=== PATIENT | male | born 1955 | race Caucasian/White ===

== ENCOUNTER 2017-06-14 04:00 | Inpatient (IN) | payer SELFPAY ==
[~2017-06-14] VITALS: Ht 167.6 cm; Wt 70.3 kg
[~2017-06-14 04:00] MED LIST: ACETAMINOPHEN325 M1 PO; AMLODIPINE BESY10 MG PO; ASPIRIN EC81 MG PO; AUGMENTIN 875-1 EACH PO; BISACODYL10 MG PR; CARVEDILOL12.5 MG PO; GABAPENTIN300 MG PO; HUMALOG100 UNIT/1 SUB-Q; HUMALOG100 UNITS/ IV; HUMULIN N100 UNIT/1 SUB-Q; IBUPROFEN800 MG PO; LASIX20 MG PO; LIPITOR80 MG PO; LISINOPRIL10 MG PO; LOVENOX40 MG SUB-Q; METFORMIN HCL1000 MG PO; METOPROLOL TART50 MG PO; NOVOLIN N100 UNIT/1 SUB-Q; OXYCODONE HCL5 MG PO; PLAVIX75 MG PO; POLYETHYLENE GL17 GM PO; PROTONIX40 MG PO; TAMSULOSIN HCL0.4 MG PO; ZOFRAN ODT4 MG SL
--- NOTE | 2017-06-14 07:07 | NUR ---
0615 PATIENT ARRIVES FROM ER. PATENT ALERT, ORIENTED, SWEATY AND SOB. PATIENT TRANSFERRED INTO BED. PT ON 2L NC. O2 SATS 88%. THIS RN INCREASES O2 TO 4L NC. PATIENT ORIENTED TO ROOM, BED CONTROLS AND CALL LIGHT. PATIENT DENIES PAIN. SATS REMAIN 88% PATIENT REFUSES CPAP. 0640 DR LOPEZ UPDATED. PATIENT UNABLE TO VOID, DECREASED SATS, ELELVATED BLOOD GLUCOSE. PATIENT GIVEN SS INSULIN EARLY. 9 UNITS NOVOLOG GIVEN. 0700 BLADDER SCAN SHOWS >999 PATIENT UP TO BATHROOM, REFUSES TO USE BSC OR URINAL. PATIENT TELLS RN "I HATE BEING IN THE HOSPITAL. QUIT HOVERING OVER ME" O2 AT 6L VIA OXYMASK, SATS NOW 95%. 0710 PATIENT REMAINS VERY INDEPENDANT, DOES NOT WANT NURSING ASSISTANCE. PATIENT IN BATHROOM TRYING TO VOID
--- NOTE | 2017-06-14 07:29 | NUR ---
MD notified of urine output. Will closely monitor. No summers ordered as patient will refuse. Report given to day shift.
--- NOTE | 2017-06-14 07:34 | NUR ---
PT AWAKE AND SITTING AT THE SIDE OF THE BED, PT STATES "I FEEL SO MUCH BETTER THAN I DID WHEN I CAME IN". PT NOT SOB, DENIES PAIN AND NAUSEA. PT GAVE HIS BREAKFAST ORDER. PT COOPERATIVE AT THIS TIME. PT O2 SATS ARE 98-100% ON 2L VIA OXY MASK.
--- NOTE | 2017-06-14 08:36 | NUR ---
PT HAD RUN OF 11 BEATS V-APOLINAR, CALLED DR. LOPEZ TO UP DATE. ORDER GIVEN TO GIVE PO METOPROLOL NOW.
--- NOTE | 2017-06-14 09:05 | NUR ---
IV SITES INTACT, NO REDNESS OR SWELLING NOTED, BOTH SITES FLUSH EASILY. PT ALERT AND ORIENTED X4, COOPERATIVE AT THIS TIME. PT REQUESTS TO SLEEP.
--- NOTE | 2017-06-14 10:18 | NUR ---
PT UP OUT OF BED AMBULATED TO TOILET INDEPENDENTLY. PT COOPERATIVE AND ALERT X4. PT HR STAYING 70'S SINUS RYTHM.
--- NOTE | 2017-06-14 10:24 | NUR ---
PT UP AMBULATED TO TOILET, ABLE TO HAVE A BM AND VOID 325 ML CLEAR YELLOW URINE. PT AMBULATED BACK TO BED, O2 SAT IS 99% ON ROOM AIR. WILL LEAVE PT ON ROOM AIR AT THIS TIME, CONTINUE TO MONITOR.
--- NOTE | 2017-06-14 11:27 | NUR ---
PT RESTING QUIETLY AT THIS TIME, SO IS AT THE BEDSIDE.
--- NOTE | 2017-06-14 11:55 | NUR ---
IV SITES INTACT, NO REDNESS OR SWELLING NOTED, PT DENIES PAIN AT IS SITES WITH FLUSH. PT ALERT AND ORIENTED, COOPERATIVE. PT ZARA 3 UNITS OF INSULIN FOR BLOOD SUGAR OF 195.
--- NOTE | 2017-06-14 15:09 | NUR ---
PT C/O SOME NAUSEA, 4 MG IV ZOFRAN GIVEN. PT C/O GENERALIZED DISCOMFORT, 500 MG TYLENOL GIVEN. PT MOSTLY SLEEPING THIS SHIFT. PT STATES "I JUST FEEL CRUMMY".
--- NOTE | 2017-06-14 17:15 | NUR ---
PT UP AMBULATED TO THE TOILET INDEPENDENTLY. PT ABLE TO VOID 500 ML SMITH URINE. PT THEN BACK TO BED. PT DENIES NAUSEA, SOB AND NAUSEA. PT HAS ZARA ROOM AIR SINCE 1300, 02 SATS REMAINED 96-100%. PT ALERT AND ORIENTED X4, COOPERATIVE. IV SITES INTACT, NO REDNESS OR SWELLING NOTED AT EITHER SITE, BOTH SITES FLUSH EASILY.
--- NOTE | 2017-06-14 20:52 | NUR ---
RT IN TO DO IS WITH PT. INSULIN GIVEN, 1UNIT PER SLIDING SCALE, BLOOD SUGAR 153, LOPRESSOR GIVEN AND PT LYING BACK DOWN IN BED TO SLEEP FOR THE NIGHT.
--- NOTE | 2017-06-15 | NUR ---
PT CONTINUES TO SLEEP, RESP EVEN AND UNLABORED.
--- NOTE | 2017-06-15 01:20 | NUR ---
PT AWAKENS FOR ASSESSMENT AND VITALS, DENIES PAIN OR NEEDS OR NEED TO VOID. BACK TO SLEEP.
--- NOTE | 2017-06-15 04:00 | NUR ---
PT CONTINUES TO SLEEP, TURNING HIMSELF IN BED OCCASIONALLY.
--- NOTE | 2017-06-15 05:30 | NUR ---
PT REFUSES AM LABS.
--- NOTE | 2017-06-15 07:05 | NUR ---
PT CONTINUES TO SLEEP, DR LOPEZ AWARE OF PT REFUSING LABS.
--- NOTE | 2017-06-15 08:00 | NUR ---
ASSESSMENT DONE. TALKING ABOUT GOING HOME TODAY. DENIES PAIN OOR SHORTNESS OF BREATH. MONITOR OFF. REMAINS ON OXIMETER.
--- NOTE | 2017-06-15 08:10 | NUR ---
ACCUCHECK 152, NOVOLOG INSULIN 1 UNIT GIVEN.
--- NOTE | 2017-06-15 09:00 | NUR ---
TOOK BREAKFAST WELL. DENEIS PROBLEMS.
--- NOTE | 2017-06-15 09:40 | NUR ---
ROUTINE LASIX 80 MG IV GIVEN.
--- NOTE | 2017-06-15 10:00 | NUR ---
DISCHARGE ORDERS RECIEVED.
--- NOTE | 2017-06-15 10:15 | NUR ---
AMBULATED TO TO VOID 700 ML SMITH URINE.
[2017-06-15] MEDS ORDERED: LOVASTATIN40 MG PO (10:16)
[2017-06-15] MEDS ORDERED: ASPIRIN EC81 MG PO (10:17)
[2017-06-15] MEDS ORDERED: METOPROLOL TART25 MG PO (10:17)
[2017-06-15] MEDS ORDERED: FUROSEMIDE40 MG PO (10:18)
[2017-06-15] MEDS ORDERED: POTASSIUM CHLO20 ME1 PO (10:19)
[2017-06-15] MEDS ORDERED: METFORMIN HCL500 MG PO (10:19)
[2017-06-15] MEDS ORDERED: FAMOTIDINE20 MG PO (10:20)
--- NOTE | 2017-06-15 10:30 | NUR ---
REFUSED FLU VAC ALREADY HAD THIS SEASON.
--- NOTE | 2017-06-15 10:50 | NUR ---
DISCHARGE INSTRUCTIONS GIVEN WITH PATIENT UNDERSTANDING. SL X 2 DC'D WITH CATH INTACT.
--- NOTE | 2017-06-15 11:05 | NUR ---
DISCHARGED VIA W/C ACCOMP BY AND RN.
--- NOTE | 2017-06-15 20:49 | EKG ---
[facility] [address] [facility] [place] [address] Signed Sinus tachycardia Possible Left atrial enlargement Anteroseptal infarct ,old ST \T\ T wave abnormality, consider lateral ischemia Abnormal ECG When compared with ECG of 28-OCT-2016 18:11, Significant changes have occurred Confirmed by HANNA LOPEZ MD ([id number]) on 06/15/2017 8:48:59 PM Electronically Signed By: HANNA LOPEZ MD 06/15/17 2049 PATIENT NAME: JOIE RUBIN Electrocardiogram DATE OF : 57 PHYSICIAN: HANNA LOPEZ MD REPORT #: [id number] REPORT IS CONFIDENTIAL AND NOT TO BE RELEASED WITHOUT AUTHORIZATION
--- NOTE | 2017-06-15 20:49 | EKG ---
[facility] [address] [facility] [place] [address] Signed Supraventricular tachycardia Left axis deviation Inferior infarct (cited on or before 14-SEP-2016) Marked ST abnormality, possible septal subendocardial injury Abnormal ECG When compared with ECG of 14-JUN-2017 04:19, (Unconfirmed) Significant changes have occurred Confirmed by HANNA LOPEZ MD ([id number]) on 06/15/2017 8:49:41 PM Electronically Signed By: HANNA LOPEZ MD 06/15/17 2049 PATIENT NAME: JOIE RUBIN Electrocardiogram DATE OF : 57 PHYSICIAN: HANNA LOPEZ MD REPORT #: [id number] REPORT IS CONFIDENTIAL AND NOT TO BE RELEASED WITHOUT AUTHORIZATION
--- NOTE | 2017-06-15 20:49 | EKG ---
[facility] [address] [facility] [place] [address] Signed Supraventricular tachycardia Possible Inferior infarct (cited on or before 14-SEP-2016) ST \T\ T wave abnormality, consider lateral ischemia Abnormal ECG When compared with ECG of 14-JUN-2017 04:15, (Unconfirmed) premature ventricular complexes are now present ST now depressed in Anterior leads Confirmed by HANNA LOPEZ MD ([id number]) on 06/15/2017 8:49:32 PM Electronically Signed By: HANNA LOPEZ MD 06/15/17 2049 PATIENT NAME: JOIE RUBIN Electrocardiogram DATE OF : 57 PHYSICIAN: HANNA LOPEZ MD REPORT #: [id number] REPORT IS CONFIDENTIAL AND NOT TO BE RELEASED WITHOUT AUTHORIZATION
== END 2017-06-15 11:05 | disposition home or self-care (01) | DRG 291 ==
LOC: ED 04:00 → CCU 05:50
PROVIDERS: ADMIT Internal Medicine
DX: I13.0 Hypertensive heart and chronic kidney disease with heart failure and stage 1 through stage 4 chronic kidney disease, or unspecified chronic kidney disease (principal); J96.01 Acute respiratory failure with hypoxia; I47.1 Supraventricular tachycardia; I50.22 Chronic systolic (congestive) heart failure; D72.829 Elevated white blood cell count, unspecified; I25.10 Atherosclerotic heart disease of native coronary artery without angina pectoris; I25.2 Old myocardial infarction; N18.3 Chronic kidney disease, stage 3 (moderate); I73.9 Peripheral vascular disease, unspecified; Z89.511 Acquired absence of right leg below knee; E11.9 Type 2 diabetes mellitus without complications; J44.9 Chronic obstructive pulmonary disease, unspecified; F17.210 Nicotine dependence, cigarettes, uncomplicated; K21.9 Gastro-esophageal reflux disease without esophagitis; N40.0 Benign prostatic hyperplasia without lower urinary tract symptoms; Z66 Do not resuscitate
CPT/HCPCS: 51798; 71010; 80053; 83036; 83735; 83880; 84484; 85025; 93005; 93010; 94640; 94660; 99285; J0153; J1650; J2405

== ENCOUNTER 2017-08-16 02:51 | Emergency (ER) | payer SELFPAY ==
[~2017-08-16] VITALS: Ht 167.6 cm; Wt 72.6 kg
[~2017-08-16 02:51] MED LIST changes: +FAMOTIDINE20 MG PO; +FUROSEMIDE40 MG PO; +LOVASTATIN40 MG PO; +METFORMIN HCL500 MG PO; +METOPROLOL TART25 MG PO; +POTASSIUM CHLO20 ME1 PO
--- NOTE | 2017-08-16 12:40 | EKG ---
[facility] [address] [facility] [place] [address] Signed Sinus tachycardia Possible Left atrial enlargement Inferior infarct (cited on or before 14-SEP-2016) Anterior infarct new in in comparison to 06/14/17 EKG. Abnormal ECG When compared with ECG of 14-JUN-2017 04:20, Significant changes have occurred Confirmed by HANNA LOPEZ MD ([id number]) on 08/16/2017 12:40:05 PM Electronically Signed By: HANNA LOPEZ MD 08/16/17 1240 PATIENT NAME: JOIE RUBIN Electrocardiogram DATE OF : 57 PHYSICIAN: HANNA LOPEZ MD REPORT #: [id number] REPORT IS CONFIDENTIAL AND NOT TO BE RELEASED WITHOUT AUTHORIZATION
== END 2017-08-16 05:20 | disposition home or self-care (01) ==
LOC: ED 02:51
PROC: 0T9B70Z Drainage of Bladder with Drainage Device, Via Natural or Artificial Opening (ICD-10-PCS; principal; 2017-08-16)
DX: I11.0 Hypertensive heart disease with heart failure (principal); I50.9 Heart failure, unspecified; I25.2 Old myocardial infarction; E78.00 Pure hypercholesterolemia, unspecified; Z89.511 Acquired absence of right leg below knee; F17.200 Nicotine dependence, unspecified, uncomplicated; Z88.5 Allergy status to narcotic agent; Z79.82 Long term (current) use of aspirin; Z79.84 Long term (current) use of oral hypoglycemic drugs; Z95.1 Presence of aortocoronary bypass graft
CPT/HCPCS: 51702; 71010; 80053; 81001; 84484; 85025; 85610; 85730; 93005; 93010; 96372; 96374; 99284

== ENCOUNTER 2017-08-16 18:05 | Emergency (ER) | payer SELFPAY ==
[~2017-08-16] VITALS: Ht 167.6 cm; Wt 72.6 kg
--- NOTE | 2017-08-17 11:58 | EKG ---
[facility] [address] [facility] [place] [address] Signed Poor data quality, interpretation may be adversely affected Sinus tachycardia Inferior infarct (cited on or before 14-SEP-2016) Anterior infarct (cited on or before 14-SEP-2016) ST \T\ T wave abnormality, consider lateral ischemia , Abnormal ECG When compared with ECG of 16-AUG-2017 02:57, Questionable change in initial forces of Anterior leads ST now depressed in Inferior leads ST no longer depressed in Lateral leads Confirmed by HANNA LOPEZ MD ([id number]) on 08/17/2017 11:58:37 AM Electronically Signed By: HANNA LOPEZ MD 08/17/17 1158 PATIENT NAME: JOIE RUBIN Electrocardiogram DATE OF : 57 PHYSICIAN: HANNA LOPEZ MD REPORT #: [id number] REPORT IS CONFIDENTIAL AND NOT TO BE RELEASED WITHOUT AUTHORIZATION
== END 2017-08-16 20:35 | disposition short-term general hospital (02) ==
LOC: ED 18:05
DX: I21.4 Non-ST elevation (NSTEMI) myocardial infarction (principal); I11.0 Hypertensive heart disease with heart failure; I50.9 Heart failure, unspecified; E11.9 Type 2 diabetes mellitus without complications; E78.00 Pure hypercholesterolemia, unspecified; F17.200 Nicotine dependence, unspecified, uncomplicated; Z89.9 Acquired absence of limb, unspecified; Z88.5 Allergy status to narcotic agent; Z79.82 Long term (current) use of aspirin; Z79.84 Long term (current) use of oral hypoglycemic drugs
CPT/HCPCS: 71010; 80053; 83880; 84484; 85025; 93005; 93010; 94660; 96372; 96374; 99285; J1650

== ENCOUNTER 2017-09-01 00:53 | Observation (INO) | payer SELFPAY ==
[~2017-09-01] VITALS: Ht 167.6 cm; Wt 69.2 kg
--- OUTSIDE RECORDS SUMMARY | 2017-09-01 01:00 | XMS | Clinical Summary ---
Demographics + + + | Address | [address] | | | [place] [address] | + + + | Home Phone | | + + + | Preferred Language | Unknown | + + + | Marital Status | Single | + + + | Yazdanism Affiliation | NON | + + + | Race | White | + + + | Ethnic Group | Not or | + + + Author + + + | Author | [facility] | + + + | Organization | [facility] | + + + | Address | Unknown | + + + | Phone | Unavailable | + + + Support +------+ + + + +-------+ | Name | Relationship | Address | Phone | +------+ + + + +-------+ ECON | [address] | | [place] | [address] | +------+ + + + +-------+ Care Team Providers + +------+-------+ | Care Bench Carpenter Name | Role | Phone | + +------+-------+ | Burt Schmidt MD | PP | tel | + +------+-------+ Source Comments DELLA is fully live on both EpicCare Ambulatory and EpicCare InPatient.[facility] Allergies + + + + + + | Active Allergy | Reactions | Severity | Noted | Comments | | | | | Date | | + + + + + + | Buprenorphine Hcl | Nausea and Vomiting | Low | 08/13/20 | | | | | | 16 | | + + + + + + | Opioids - Morphine | Nausea and Vomiting | | 10/03/19 | Patient endorses | | Analogues | | | 16 | severe n/v with any | | | | | | opioids | + + + + + + | Tramadol | Nausea and Vomiting | Medium | 11/21/19 | | | | | | 16 | | + + + + + + Current Medications + + + +---------+------+------+-------+ | Prescription | Sig. | Disp. | Refills | Star | End | Statu | | | | | | t | Date | s | | | | | | Date | | | + + + +---------+------+------+-------+ | aspirin chewable | Chew and swallow 1 | 30 | 0 | 09/1 | | Activ | | 81 mg oral | tablet by mouth once | tablet | | 1/20 | | e | | tablet,chewable | daily. | | | 15 | | | + + + +---------+------+------+-------+ | acetaminophen 325 | Take 1-2 tablets by | 100 | 0 | 11/2 | | Activ | | mg oral tablet | mouth every six | tablet | | 5/20 | | e | | | hours as needed. | | | 15 | | | + + + +---------+------+------+-------+ | lactobacillus | Take 1 capsule by | 50 | 0 | 12/2 | | Activ | | rhamnosus, GG, 15 | mouth once daily. | capsule | | 3/20 | | e | | billion cell oral | Also available OTC. | | | 15 | | | | capsule, sprinkle | | | | | | | + + + +---------+------+------+-------+ | ibuprofen 200 mg | Take 600 mg by mouth | | | | | Activ | | oral tablet | once daily as | | | | | e | | | needed (pain). | | | | | | + + + +---------+------+------+-------+ | insulin lispro 100 | Inject 8 Units under | 10 mL | 1 | 02/1 | | Activ | | unit/mL | the skin (SUBC) | | | 2/20 | | e | | subcutaneous | three times daily | | | 16 | | | | solution | with meals. | | | | | | + + + +---------+------+------+-------+ | Insulin | Use as directed. | 100 | 1 | 02/1 | | Activ | | Syringe-Needle U-100 | | each | | 2/20 | | e | | (INSULIN SYRINGE) 1 | | | | 16 | | | | mL 28 x 1/2" | | | | | | | | syringe | | | | | | | + + + +---------+------+------+-------+ | senna-docusate | Take 1-2 tablets by | | | 03/0 | | Activ | | 8.6-50 mg oral | mouth twice daily as | | | 2/20 | | e | | tabletIndications: | needed. | | | 16 | | | | constipation | Indications: | | | | | | | | CONSTIPATION | | | | | | + + + +---------+------+------+-------+ | insulin lispro 100 | Inject 2-10 Units | 10 mL | 1 | 03/0 | | Activ | | unit/mL | under the skin | | | 2/20 | | e | | subcutaneous | (SUBC) with each | | | 16 | | | | solution | meal and bedtime. | | | | | | | | <70 | | | | | | | | follow hypoglycemia | | | | | | | | [id number] | | | | | | | | no | | | | | | | | [id number] | | | | | | | | 2 Units 201-250 | | | | | | | | 4 [id number] | | | | | | | | 6 [id number] | | | | | | | | 8 [id number] | | | | | | | | 10 Units>400 call MD | | | | | | + + + +---------+------+------+-------+ | DAPTOmycin 500 mg | Inject 450 mg into | 30 | 1 | 03/0 | | Activ | | intravenous recon | the vein (IV) every | Dose(s) | | 7/20 | | e | | soln | twenty-four hours. | | | 16 | | | | | Duration to be | | | | | | | | managed by OPAT | | | | | | + + + +---------+------+------+-------+ | polyethylene | Take 17-34 g by | | | 03/2 | | Activ | | glycol 17 gram/dose | mouth once daily as | | | 8/20 | | e | | oral | needed. Indications: | | | 16 | | | | powderIndications: | CONSTIPATION | | | | | | | constipation | | | | | | | + + + +---------+------+------+-------+ | carvedilol 12.5 mg | Take 1 tablet by | 60 | 2 | 03/3 | | Activ | | oral tablet | mouth two times | tablet | | 1/20 | | e | | | daily with meals. | | | 16 | | | | | Administer with | | | | | | | | food. | | | | | | + + + +---------+------+------+-------+ | hydrALAZINE 10 mg | Take 1 tablet by | 90 | 2 | 03/3 | | Activ | | oral | mouth three times | tablet | | 1/20 | | e | | tabletIndications: | daily. Hold for | | | 16 | | | | hypertension | systolic blood | | | | | | | | pressure less than | | | | | | | | 100 Indications: | | | | | | | | HYPERTENSION | | | | | | + + + +---------+------+------+-------+ | tamsulosin 0.4 mg | Take 1 capsule by | 30 | 2 | 03/3 | | Activ | | oral | mouth once daily at | capsule | | 1/20 | | e | | capsule,extended | bedtime. | | | 16 | | | | release 24hr | | | | | | | + + + +---------+------+------+-------+ | fluconazole 200 mg | Take 2 tablets by | 60 | 1 | 04/2 | | Activ | | oral tablet | mouth once daily. | tablet | | 20 | | e | | | Duration to be | | | 16 | | | | | determined by by | | | | | | | | OPAT | | | | | | + + + +---------+------+------+-------+ | amLODIPine 10 mg | Take 1 tablet by | 30 | 0 | 04/2 | | Activ | | oral | mouth once daily. | tablet | | 5/20 | | e | | tabletIndications: | | | | 16 | | | | Coronary artery | | | | | | | | disease involving | | | | | | | | [place] coronary | | | | | | | | artery of [place] | | | | | | | | heart without angina | | | | | | | | pectoris, PAD | | | | | | | | (peripheral artery | | | | | | | | disease) ([facility]) | | | | | | | + + + +---------+------+------+-------+ | pantoprazole | Take 1 tablet by | 30 | 0 | 04/2 | | Activ | | (PROTONIX) 20 mg | mouth once daily. | tablet | | 5/20 | | e | | oral tablet,delayed | | | | 16 | | | | release (DR/EC) | | | | | | | + + + +---------+------+------+-------+ | pravastatin 10 mg | Take 1 tablet by | 30 | 0 | 04/2 | | Activ | | oral tablet | mouth once daily in | tablet | | 5/20 | | e | | | the evening. | | | 16 | | | + + + +---------+------+------+-------+ | NaCl 0.9 % | 500 mL by irrigation | 500 mL | prn | 05/0 | | Activ | | irrigation solution | route as needed | | | 9/20 | | e | | | (wet amount of gauze | | | 16 | | | | | needed to cover | | | | | | | | wound for twice | | | | | | | | daily changes.). | | | | | | + + + +---------+------+------+-------+ | lisinopril 10 mg | Take by mouth. | | | 11/2 | | Activ | | oral tablet | | | | 8 | | e | | | | | | 16 | | | + + + +---------+------+------+-------+ | atorvastatin 80 mg | Take by mouth. | | | | | Activ | | oral tablet | | | | | | e | + + + +---------+------+------+-------+ | clopidogrel 75 mg | Take 1 tablet by | 90 | 3 | / | | Activ | | oral tablet | mouth once daily in | tablet | | 04/21 | | e | | | the evening. Please | | | 17 | | | | | ask at your | | | | | | | | follow-up clinic | | | | | | | | visit how this | | | | | | | | should be continued. | | | | | | + + + +---------+------+------+-------+ Active Problems + + + | Problem | Noted Date | + + + | PICC (peripherally inserted central catheter) in place | 11/21/2015 | + + + | Open wound of left foot | 10/20/2015 | + + + | Encounter for long-term (current) use of antibiotics | 10/16/2015 | + + + + + | Overview: 10/2015 Left foot skin and soft tissue infection | + + + + + | Acute osteomyelitis of left foot ([facility]) | 10/14/2015 | + + + | Open wound of left foot | 08/08/2015 | + + + | Open wound of right foot with complication, s/p ELENA 06/14/15 | 05/23/2015 | + + + | NSTEMI (non-ST elevated myocardial infarction) ([facility]) | 05/07/2015 | + + + + + | Last Assessment & Plan: NSTEMI with trop peak of 4.56 and | | down-trending; however, now post-surgical and still at risk for | | NSTEMI. -repeat EKG at baseline ST abnormalites-repeat trops not | | elevated-continue ASA, BB, statin | + + + + + | Coronary artery disease without angina pectoris | 05/06/2015 | + + + + + | Last Assessment & Plan: Continue ASA, statin, BB | + + + + + | PAD (peripheral artery disease) ([facility]) | 05/06/2015 | + + + + + | Overview: S/P R popliteal to DP bypass | | Last Assessment & Plan: S/P revascularization | | - NV checks q 2 hours | | - continue IV hydralazine and IV labetalol PRN for SBP goal <170 | | - ASA and SQH | | - intermediate level of care | + + + + + | Type 2 diabetes mellitus with circulatory disorder ([facility]) | 05/06/2015 | + + + + + | Overview: Admitting A1c 8.7 Last Assessment & Plan: Still | | on Endo Tool given elevated CBG's; at risk for infection-continue | | endo tool for now given continued nausea and poor PO intake | + + + + + | JANI (acute kidney injury) ([facility]) | 05/06/2015 | + + + + + | Overview: Non-oliguric | | Last Assessment & Plan: Cr stable 2.6-->2.62 | | Still volume up by +10L, IV lasix 20 mg IV x1 | | I&O goal even to -500 mL | | Daily renal panel | | Re-consult nephrology for anticipated surgery on Saturday | | D/Jimbo summers | + + + + + | At risk for infection | 05/06/2015 | + + + + + | Last Assessment & Plan: 10/04 to dry gangreneContinue to | | monitor for fever and worsening leukocytosisID re-consulted and | | no concern for active infection; recs to restart augmentin if | | worsening leukocytosis, fever, or worsening erythema (will cover | | MSSA, strep, anaerobes frequently found in feet) with revaluation | | on POD#0 | + + + + + | Hypertension | 05/06/2015 | + + + + + | Last Assessment & Plan: Uptitrate BB to 50 mg q 6 hours | | IV hydralazine PRN for SBP >170 | | Continue amlodipine 10 mg daily | + + + + + | At risk for deep venous thrombosis | 05/06/2015 | + + + + + | Last Assessment & Plan: SQH | | No SCD's | + + + + + | Dry gangrene (HCC) | 04/27/2015 | + + + Resolved Problems + + + + | Problem | Noted | Resolved | | | Date | Date | + + + + | Postoperative anemia due to acute blood loss | 10/03/19 | | | | 16 | 6 | + + + + | Acute constipation | 05/08/20 | | | | 15 | 5 | + + + + + + | Last Assessment & Plan: Schedule Miralax and Senna-Docusate | | PRN suppositories | + + + + + + | Ulcer of right foot (HCC) | 04/27/20 | | | | 15 | 5 | + + + + Family History + + +------+ + | Medical History | Relation | Name | Comments | + + +------+ + | Diabetes | Brother | | | + + +------+ + + +------+--------+ + | Relation | Name | Status | Comments | + +------+--------+ + | Brother | | | | + +------+--------+ + Social History + + + +--------+ + | Tobacco Use | Types | Packs/Day | Years | Date | | | | | Used | | + + + +--------+ + | Current Every Day | Cigarettes | 2 | 40 | 05/01/1975 - | | Smoker | | | | 04/29/2015 | + + + +--------+ + + +---+---+---+ | Smokeless Tobacco: | | | | | Never Used | | | | + +---+---+---+ + + | Comments: half a pack a day. Started in January | + + + + +---------+ + | Alcohol Use | Drinks/We | oz/Week | Comments | | | ek | | | + + +---------+ + | No | 0 | 0.0 | ETOH free since 04/27/15 | | | Standard | | | | | drinks or | | | | | | | | | | equivalen | | | | | t | | | + + +---------+ + + + + | Sex Assigned at | Date Recorded | | | | + + + | Not on file | | + + + Last Filed Vital Signs + + + + | Vital Sign | Reading | Time Taken | + + + + | Blood Pressure | 134/76 | 08/13/2016 2:54 PM PST | + + + + | Pulse | 58 | 08/13/2016 2:54 PM PST | + + + + | Temperature | 36.8 C (98.3 F) | 02/15/2016 1:29 PM PDT | + + + + | Respiratory Rate | 16 | 02/15/2016 1:29 PM PDT | + + + + | Oxygen Saturation | 100% | 04/30/2016 12:45 PM PDT | + + + + | Inhaled Oxygen | - | - | | Concentration | | | + + + + | Weight | 73.5 kg (162 lb) | 08/13/2016 2:54 PM PST | + + + + | Height | 167.6 cm (5' 6") | 02/15/2016 1:29 PM PDT | + + + + | Body Mass Index | 26.15 | 08/13/2016 2:54 PM PST | + + + + Plan of Treatment + + + + + | Health Maintenance | Due Date | Last Done | Comments | + + + + + | INFLUENZA VACCINE | | | | | (FLU SHOT) | 7 | | | + + + + + Results Not on filefrom Last 3 Months
[2017-09-01] MEDS ORDERED: LOVASTATIN40 MG PO (06:16)
[2017-09-01] MEDS ORDERED: ASPIRIN EC81 MG PO (06:16)
[2017-09-01] MEDS ORDERED: FUROSEMIDE40 MG PO (06:16)
[2017-09-01] MEDS ORDERED: FAMOTIDINE20 MG PO (06:16)
[2017-09-01] MEDS ORDERED: POTASSIUM CHLO20 ME1 PO (06:17)
[2017-09-01] MEDS ORDERED: METOPROLOL TART25 MG PO (06:17)
--- OUTSIDE RECORDS SUMMARY | 2017-09-01 06:28 | XMS | Clinical Summary ---
Demographics + + + | Address | [address] | | | [place] [address] | + + + | Home Phone | | + + + | Preferred Language | Unknown | + + + | Marital Status | Single | + + + | Adventism Affiliation | NON | + + + [...] ECON | [address] | | [place] | [address] | +------+ + + + +-------+ Care Team Providers + +------+-------+ | Care Microwave Radio Technician Name | Role | Phone | + +------+-------+ | Burt Schmidt MD | PP | tel | + +------+-------+ Source Comments DELLA is fully live on both EpicCare Ambulatory and EpicCare InPatient.[facility] Allergies + + + + + [...] | | | | | | | [id number] | | | | | | | | no | | | | | | | | [id number] | | | | | | | | 2 Units 201-250 | | | | | | | | 4 [id number] | | | | | | | | 6 [id number] | | | | | | | | 8 [id number] | | | | | | | [...] | | | | | | | [place] coronary | | | | | | | | artery of [place] | | | | | | | | heart without angina | | | | | | | | pectoris, PAD | | | | | | | | (peripheral artery | | | | | | | | disease) ([facility]) | | | | | | | [...] + | Acute osteomyelitis of left foot ([facility]) | 10/14/2015 | + + + | Open wound of left foot | 08/08/2015 | + + + | Open wound of right foot with complication, s/p ELENA 06/14/15 | 05/23/2015 | + + + | NSTEMI (non-ST elevated myocardial infarction) ([facility]) | 05/07/2015 | + + + + [...] + + | PAD (peripheral artery disease) ([facility]) | 05/06/2015 | + + + + [...] Type 2 diabetes mellitus with circulatory disorder ([facility]) | 05/06/2015 | + + + + + | Overview: Admitting A1c 8.7 Last Assessment & Plan: Still | | on Endo Tool given elevated CBG's; at risk for infection-continue | | endo tool for now given continued nausea and poor PO intake | + + + + + | JANI (acute kidney injury) ([facility]) | 05/06/2015 | + + + + [...]
--- NOTE | 2017-09-01 06:45 | EKG ---
[facility] [address] [facility] [place] [address] Signed Sinus tachycardia Possible Left atrial enlargement Possible Inferior infarct (cited on or before 14-SEP-2016) Anterior infarct (cited on or before 14-SEP-2016) Abnormal ECG When compared with ECG of 16-AUG-2017 18:11, ST no longer depressed in Inferior leads Confirmed by ALPHONSE BRICE MD ([id number]) on 09/01/2017 6:45:20 AM Electronically Signed By: ALPHONSE BRICE MD 09/01/17 0645 PATIENT NAME: JOIE RUBIN Electrocardiogram DATE OF : 57 PHYSICIAN: ALPHONSE BRICE MD REPORT #: [id number] REPORT IS CONFIDENTIAL AND NOT TO BE RELEASED WITHOUT AUTHORIZATION
--- NOTE | 2017-09-01 06:47 | NUR ---
62YR OLD MALE ADMITTED FROM ER TO ROOM 112 ACCOMPANIED BY VIA W/C. PT IS ALERT AND ORIENTED,IN GOOD SPIRITS, ABLE TO STAND AND TRANSFER FROM WC TO BED ON L LEG. DENIES ANY DISCOMFORT, STATES HE IS VERY TIRED. DENIES SOB, O2 @ 5L/MASK, 99%. ORIENTED TO ROOM AND CALL LIGHT, SOFA BED MADE UP FOR IN ROOM, TELE# 10 PLACED HRR 71. CALL LIGHT IN EASY REACH.
--- NOTE | 2017-09-01 07:48 | NUR ---
RECIEVED REPORT FROM LEE PRATER. PT SLEEPING IN ROOM. AT BEDSIDE SLEEPING. MASK WITH 5L O2 SATING AT 100%. TELE [address] CONTINUOUS PULSE OX[address] SL LEFT SRM. SIDE RAILS UP. RESPERATIONS EQUAL AND UNLABORED.
--- NOTE | 2017-09-01 08:16 | NUR ---
PATIENT WAS IN BED SLEEPING, WAS ON PULLOUT BED, I INTRODUCED MYSELF, HE SAID HEDIDNT WANT TO EAT ANYTHING FOR BREAKFAST AND I REPORTED THAT TO THE NURSE.
--- NOTE | 2017-09-01 10:20 | NUR ---
PT UP FOR BREAKFAST. INSULIN GIVEN LATE. PT REFUSED BREAKFAST THIS MORNING @ 0800. REMOVED FACE MASK FOR MEDICATION PASS. PT STATS STAYED @ 96-100. PT WAS ON 4L VIA MASK. CHANGED PT TO RA BECAUSE SAT WERE STAYING >90. PT TOLLERATING WELL. WILL CONTINUE TO MONITOR.
--- NOTE | 2017-09-01 10:24 | NUR ---
PATIENT WAS STILL SLEEPING, I TOLD HIM I NEEDED TO GET HIS VITAL SIGNS I NOTICED THAT HE HADNT VOIDED AND ASKED IFHE HAD TO USE THE RESTROOM AND HE ASKED FOR A WHEELCHAIR AND HE WOULD GET HIMSELF INTO THE RESTROOM AND GO
--- NOTE | 2017-09-01 15:37 | NUR ---
PATIENT WAS DISCHARGED HOME
--- NOTE | 2017-09-11 07:52 | NUR ---
Called and spoke with patient and he does not want [facility] help. Spoke with patient daughter who will speak with her dad to see if we can help out in any way. Waiting cartoonist special effects back. [facility] spoke with patient daughter who stated she would talk with her dad, he is currently not wanting help with services and has a long history of this. [facility] is waiting for patient daughter to call back.
--- NOTE | 2017-09-23 08:21 | NUR ---
09/19/17- JAMIE and Tiffany HECTOR saw patient at his residence at 2:15. Patient stated he is doing fine and following the warehouse inventory clerk protocol for his diabetes and is waiting for his disability insurance to start in October. Patient stated she cooks all his meals and that he is taking his medications. Patient stated he does not want any home visits but was happy to talk about his current state of health. No further follow up at this time.
== END 2017-09-01 14:45 | disposition home or self-care (01) ==
LOC: ED 00:53 → MS 00:54
PROVIDERS: ADMIT Internal Medicine
DX: I13.0 Hypertensive heart and chronic kidney disease with heart failure and stage 1 through stage 4 chronic kidney disease, or unspecified chronic kidney disease (principal); E11.22 Type 2 diabetes mellitus with diabetic chronic kidney disease; F17.200 Nicotine dependence, unspecified, uncomplicated; N18.3 Chronic kidney disease, stage 3 (moderate); I50.23 Acute on chronic systolic (congestive) heart failure; E11.51 Type 2 diabetes mellitus with diabetic peripheral angiopathy without gangrene; I25.10 Atherosclerotic heart disease of native coronary artery without angina pectoris; N40.0 Benign prostatic hyperplasia without lower urinary tract symptoms; K21.9 Gastro-esophageal reflux disease without esophagitis; I25.2 Old myocardial infarction; E11.21 Type 2 diabetes mellitus with diabetic nephropathy; Z88.5 Allergy status to narcotic agent; Z89.511 Acquired absence of right leg below knee; Z89.432 Acquired absence of left foot; Z66 Do not resuscitate; Z79.82 Long term (current) use of aspirin; Z79.899 Other long term (current) drug therapy
CPT/HCPCS: 71010; 80053; 82803; 83880; 84484; 85025; 93005; 93010; 94660; 94762; 96374; 96376; 99285; G0378